=== PATIENT | male | born 1960 | race Hispanic/Latino ===

== ENCOUNTER 2021-10-15 09:07 | Outpatient (CLI) | payer OTHER | END 2021-10-15 09:08 | disposition home or self-care (01) | LOC: PF 09:07 | PROVIDERS: ATTEND Internal Medicine | DX: I11.0 Hypertensive heart disease with heart failure (principal); J43.9 Emphysema, unspecified; I50.9 Heart failure, unspecified | CPT/HCPCS: 94060 ==